=== PATIENT | female | born 1990 | race Caucasian/White ===

== ENCOUNTER → 2018-12-29 17:15 | Outpatient (CLI) | payer OTHER, SELFPAY ==
[2019-01-03 14:45] LABS: HPV Reflexed? NOT INDICATED
== END ==
PROVIDERS: Referring Provider Obstetrics & Gynecology; Visit Provider Obstetrics & Gynecology
DX: Z12.4 Encounter for screening for malignant neoplasm of cervix (principal)
CPT/HCPCS: 87624; 88175; G0145

== ENCOUNTER → 2020-11-13 10:43 | Outpatient (CLI) | payer OTHER, SELFPAY ==
[2016-09-21 08:37] VITALS: BMI 26.3
[2020-11-13 12:37] LABS: Absolute Lymphocyte Count 2.26 X10^3/uL (0.83-4.51); Basophil# 0.02 X10^3/uL; Basophil% 0.2 % (0-1); Eosinophil# 0.06 X10^3/uL; Eosinophils% 0.7 % (0-5); Hematocrit 40.7 % (37-47); Hemoglobin 13.8 g/dL (12.0-15.0); Lymphocyte # 2.26 X10^3/ul (0.83-4.51); Lymphocyte % 25.1 % (19-41); Mean Corp Hgb Conc 33.9 g/dL (32-36); Mean Corpuscular Hgb 28.3 pg (27.0-32.0); Mean Corpuscular Volume 83.4 fL (81-99); Mean Platelet Vol. 11.4 fl (6.2-12.0); Monocyte# 0.56 X10^3/uL; Monocyte% 6.2 % (0-10); NRBC Flagged by Analyzer 0 % (0-5); Neutrophil # 6.02 X10^3/uL (2.7-7.7); Platelet Count 258 K/mm3 (150-450); RBC Distribution Width CV 12.9 % (11.6-14.6); RBC Distribution Width SD 39.3 fl (35.1-43.9); Red Blood Count 4.88 M/mm3 (4.2-5.4)
[2020-11-14 09:30] LABS: HIV - WCH Non-Reactive (Nonreactive); Hepatitis B Surface Antigen Non-Reactive (Nonreactive); Hepatitis C Antibody Non-Reactive (Nonreactive); Rubella IgG Reactive (Nonreactive); Syphilis Antibodies Non-reactive
[2020-11-14 09:39] LABS: Amphetamine Urine VISTA NEGATIVE (<1000 ng/mL); Barbiturate Urine VISTA NEGATIVE (< 200 ng/mL); Benzodiazepine Urine VISTA NEGATIVE (< 200 ng/mL); Cocaine Urine VISTA NEGATIVE (< 300 ng/mL); Ecstacy Urine VISTA NEGATIVE (< 500 ng/mL); Methadone Urine VISTA NEGATIVE (< 300 ng/mL); PCP Urine VISTA NEGATIVE (< 25 ng/mL); THC Urine VISTA NEGATIVE (< 50 ng/mL); Vista UDS pH Range 5
[2020-11-14 09:47] LABS: Thyroid Stim Hormone (TSH) 1.06 uIU/mL (0.358-3.74)
[2020-11-15 00:11] LABS: Chlamydia By Nucleic Acid AMP Negative (Negative)
[2020-11-15 10:02] LABS: Gonococcus By Nucleic Acid AMP Negative (Negative)
[2020-11-17 13:52] LABS: HPV Reflexed? NOT INDICATED
== END ==
PROVIDERS: Visit Provider Obstetrics & Gynecology
DX: Z34.81 Encounter for supervision of other normal pregnancy, first trimester (principal); Z12.4 Encounter for screening for malignant neoplasm of cervix; Z11.3 Encounter for screening for infections with a predominantly sexual mode of transmission
CPT/HCPCS: 36415; 80307; 84443; 85025; 86703; 86762; 86780; 86803; 87086; 87088; 87340; 87491; 87591; 88175; G0145

== ENCOUNTER → 2021-04-06 16:13 | Outpatient (CLI) | payer OTHER, SELFPAY ==
[2021-04-06 17:34] LABS: Hematocrit 35.9 % (37-47); Hemoglobin 11.7 g/dL (12.0-15.0); Mean Corp Hgb Conc 32.6 g/dL (32-36); Mean Corpuscular Hgb 28.5 pg (27.0-32.0); Mean Corpuscular Volume 87.3 fL (81-99); Mean Platelet Vol. 11.3 fl (6.2-12.0); Platelet Count 241 K/mm3 (150-450); RBC Distribution Width CV 13.1 % (11.6-14.6); RBC Distribution Width SD 41.2 fl (35.1-43.9); Red Blood Count 4.11 M/mm3 (4.2-5.4); White Blood Count 9.8 K/mm3 (4.4-11.0)
[2021-04-06 17:37] LABS: Glucose Challenge Gest 1H 50g 97 mg/dL (70-140)
== END ==
PROVIDERS: Visit Provider Obstetrics & Gynecology
DX: Z34.83 Encounter for supervision of other normal pregnancy, third trimester (principal)
CPT/HCPCS: 36415; 82950; 85027

== ENCOUNTER → 2021-05-19 | Outpatient (CLI) | payer OTHER, SELFPAY | END | disposition home or self-care (01) | LOC: LABSPEC 05-20 09:26 | PROVIDERS: Visit Provider Obstetrics & Gynecology | DX: Z36.85 Encounter for antenatal screening for Streptococcus B (principal) | CPT/HCPCS: 87081 ==

== ENCOUNTER → 2021-06-03 | Outpatient (CLI) | payer OTHER, SELFPAY | END | disposition home or self-care (01) | LOC: LABSPEC 10:47 | PROVIDERS: Visit Provider Obstetrics & Gynecology | DX: Z03.818 Encounter for observation for suspected exposure to other biological agents ruled out (principal) | CPT/HCPCS: 87635; U0005; U0003 ==

== ENCOUNTER 2021-06-08 09:35 | Inpatient (IN) | payer OTHER, SELFPAY ==
--- NOTE | 2021-06-07 09:54 | HP.PCM_ITS ---
History and Physical Date of Admission: 06/08/21 ACOG ANTEPARTUM RECORD - HISTORY AND PHYSICAL (06/07/2021) Name: NATALI ORTEGA History of this : This is a 30 year old [id number] presents at 39 wks + 3 days gestation for repeat section. OB Physician: Gee Salgado MD Hilton's Physician: Judson ...................................................................... : 1990 Age: 30 Address: [address] [place] [address] Phone: H) [phone] Insurance Carrier: [employer] [id number] Emergency Contact: CHRISTY HUANG [phone] ...................................................................... 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 Illicit Drug Use - denies use of street drugs Sexual Activity - Residence - lives with Place of - [place], [place] Hours Worked - 24 hours per week Spouse-Sig Other Name - Radhames Ortega Spouse-Sig Other Occupation - [employer] Spouse-Sig Other Phone No - [phone] Children Name(s) - Joie ('15, DS), Hill '17 PRIOR DELIVERY HISTORY DEL DATE GEST LAB WT LB WT OZ TYPE ANES LABOR TX 19 Apr 17 39 0 7 10 C-Sec Spinal No 25 Sep 15 40 18 7 14 C-Sec Epidural No ANTEPARTUM FLOW CHART VISIT GE RTC FU F F MD U U DATE WK MD WKS HT PN HR M SS BP ED WT MD GL D EF ST __ ____ ___ __ __ ___ __ __ __ ___ __ __ __ ___ __ May JMW 3 38 + + 100/60 0 183 ne ne May JMW 1 37 + + 122/84 sl 184 tr - May JMW 1 36 V + + 108/76 0 181 - - Apr JMW 2 34 + + 118/74 0 175 tr - May 05 JMW 2 31 + + 110/70 0 172 tr - Feb 28 JMW 3 25 + + 102/64 0 169 - - 25 [facility] + 112/68 0 159 - - Jan 21 4 18 - + ? 98/72 0 154 - - Dec 17 4 18 - + 114/76 0 150 ne ne ANTEPARTUM NOTE(S): Jun 03 2021: FM well May 27 2021: Periodic cramping, Good FM May 19 2021: doing well, GBS and LARC today Apr 28 2021: doing well Apr 06 2021: See note, Good FM Mar 03 2021: Doing Well and Glucola Given Jan 28 2021: Sono Today,Feeling Well Jan 09 2021: No concerns Dec 12 2020: COMPREHENSIVE ANTEPARTUM NOTE(S): Jun 03 2021: Voiced concerns about stomach/gas pain that resolved yesterday. Covid swab completed in office today. Ensure drink given. Consent signed. May 22 2021: H taken to OB. tkg Apr 06 2021: Reviewed FM, PTL, and PROM. Encouraged Tdap, Influenza and wants to discuss Covid vaccine. She feels she likely had Covid but testing was not really very helpful, a weakly + test then retest was negative. Asking about antibody testing vs just getting vaccine. Advised I think recommendation is 90 days after Covid. Will discuss further with Dr Salgado. LMT Jan 09 2021: Natali is here for a PNV at 18 wks. No FM yet. No edema present. Denies concerns/ complaints. Nausea resolved. Declined AFP/ CF testing. MK Jan 09 2021: 18 weeks, no complaints. Anatomy scan next visit. Dec 12 2020: Natali is here for PNV. Feeling well and learning which foods she can or cannot eat. Taking fluids well. Has cut caffiene from diet and finds herself tired in the afternoon. Voices no complaints. Urine neg/neg. LSS Dec 12 2020: 14wk, has some nausea but controlled. JM Nov 27 2020: NOB TELEHEALTH VISIT, 35 MINUTE DURATION. Natali is a 30 year old with an MONIQUE of 06/12/2021, current GA is 11 w 6 d. She resides with he , Radhames, and their two children. Both of her children were delivered by C/S, and she plans a repeat C/S at [facility]. is planned. Past history updated. Natali states that she feels fatigued, and has had some mild nausea; no emesis. Revi Nov 13 2020: ok Nov 13 2020: Natali is here for a missed menses appt. , previous C/S's. LMP 09/05/20. Positive UPT in office. MONIQUE 06/12/21. Approximately 9wks and 6 days. Reviewed medications, allergies and hx. No concerns expressed at this time. Due for a pap and cultures today, consent signed. Pt complains of fatigue and suppressed appetite. Denies spotting/bleeding/cramping. MK REVIEW OF SYSTEMS: GENERAL - Denies fever, or chills SKIN - Denies rash, new skin lesions, or change in moles EYES - Denies blurred vision, or change in visual acuity EARS - Denies ear pain, or difficulty hearing NOSE - Denies nasal congestion, discharge, or bleeding MOUTH - Denies sore throat, or difficulty swallowing NECK - Denies pain or swelling RESPIRATORY - Denies shortness of breath, cough, wheezing CARDIOVASCULAR - Denies palpitations, chest pain, orthopnea, PND, peripheral edema, syncope or claudication GASTROINTESTINAL - Denies nausea, vomiting, diarrhea, constipation, Denies abdominal pain, melena and or bright red blood GENITOURINARY - Denies dysuria, frequency of urination, urgency, or hesitancy MUSCULOSKELETAL - Denies joint or muscle pain, or back pain NEUROLOGICAL - Denies localized numbness, weakness, or tingling PSYCHIATRIC - Denies depression, anxiety, substance abuse or suicide attempts ENDOCRINE - Denies heat or cold intolerance, weight loss or gain, increasing thirst HEMATO-IMMUNOLOGIC - Denies easy bruising, bleeding, oral ulcerations or recurrent infections GENETICS SCREENING: Age 35+ years: No Thalassemia: No Neural Tube Defect: No Down Syndrome: No MINDI-SACHS: No Sickle Cell Disease: No Hemophilia: No Musc. Dystrophy: No Cystic Fibrosis: No-declines screening [place] Chorea: No Mental Retardation: No Fragile X: No Other genetic: No Other defects: No SABs/still births: No Drugs since LMP: No INFECTION HISTORY: High risk AIDS: No High risk Hepatitis: No Exposed to TB: No Exposed to Herpes: No Rash/viral illness since LMP: No History of STD: No MENSTRUAL HISTORY: *Menses Amount/Duration: 4 daysMenses Regularity: RegularFrequency: monthlyMenarche (Age Onset): 12* PAST SUMMARY: PARITY: 1. Total Pregnancies............ 3 2. Full Term Pregnancies........ 2 3. Premature.................... 0 4. Abortions - Induced.......... 0 5. Abortions - Spontaneous...... 0 6. Ectopics..................... 0 7. Multiple Births.............. 0 8. Living Children.............. 2 PAST #1: Date of :.................. 02/28/15 Gestation Weeks:................ 40 Length of labor(hours):......... 18 Sex:............................ F Weight-lbs:............... 7 Weight-oz:................ 14 Type of Delivery:............... C-Sect Type of Anesthesia:............. Epidural Place of Delivery:.............. [place] Treatment of Labor?:.... No Comment: PUSHED X 4 HRS, BABY IV PAST #2: Date of :.................. 09/22/16 Gestation Weeks:................ 39 Length of labor(hours):......... 0 Sex:............................ M Weight-lbs:............... 7 Weight-oz:................ 10 Type of Delivery:............... C-Sect Type of Anesthesia:............. Spinal Place of Delivery:.............. [place] Treatment of Labor?:.... No Comment: PHYSICAL EXAMINATION General Appearence: 30 yo female in no acute distress Vital Signs: AF, VSS Heart: RRR without rubs or gallops Lungs: CTA x 2 Breasts: deferred Abdomen: gravid Pelvis: Cervix: Presentation: cephalic Station: Fetus: Size: AGA Movement: present Heart: present LAB TEST(S) ORDERED SINCE:09/15/20 06/03/2021 COVID 19, [facility] [facility](RT COLLECT) 05/22/2021 RULE OUT BETA STREP (GRP. B) 04/06/2021 GLUCOSE CHALLENGE GEST 1H 50G 04/06/2021 CBC-COMPLETE BLOOD CNT NO DIFF 11/17/2020 PAP IG W/REFLEX HR HPV APTIMA 11/15/2020 URINE CULTURE 11/15/2020 CHLAMYDIA/GC [place] APTIMA 11/14/2020 URINE DRUG SCREEN (VISTA) 11/14/2020 THYROID STIM HORMONE (TSH) 11/14/2020 RUBELLA IGG 11/14/2020 L509.8000 11/14/2020 HIV - [facility] 11/14/2020 HEPATITIS C ANTIBODY 11/14/2020 HEPATITIS B SURFACE ANTIGEN 11/13/2020 T AND S-NO CHARGE W/PNP 11/13/2020 CBC W/DIFF, AUTOMATED == ==== Order Observation Description Value Ref_Range A* Site == ==== COVID 19, [place] NOTE BOWDEN COVID 19, [place] COVID-19,[place] Not Detected Not Detect ML Normal Reference Range: Not Detected Method:(RT-PCR) real-time reverse transcriptase PCR [employer] Instrument *The Food and Drug Administration (FDA) has issued an Emergency Use Authorization (EAU) for the CORRINE SARS-CoV-2 Assay for the rapid detection of the virus that causes COVID-19. This test has been validated, but the FDAs independent review of this validation is pending. *Negative results do not preclude infection and should not be used as the sole basis for treatment or patient management. Optimum specimen types and timing for peak viral levels during infections caused by SARS-CoV-2 have not been determined. Collection of multiple specimens from the same patient may be necessary to detect the virus. The possibility of a false negative result should be considered if the patient has clinical presentation or has had recent exposure. RULE OUT BETA S NOTE BOWDEN GLUCOSE CHALLEN NOTE BOWDEN GLUCOSE CHALLEN GLU GEST 50G 1H 97 mg/dL 70-140 ML CBC-COMPLETE BL NOTE BOWDEN CBC-COMPLETE BL WBC 9.8 K/mm3 4.4-11.0 ML CBC-COMPLETE BL RBC 4.11 M/mm3 4.2-5.4 L ML CBC-COMPLETE BL HGB 11.7 g/dL 12.0-15.0 L ML CBC-COMPLETE BL HCT 35.9 37-47 L ML CBC-COMPLETE BL MCV 87.3 fL 81-99 ML CBC-COMPLETE BL MCH 28.5 pg 27.0-32.0 ML CBC-COMPLETE BL MCHC 32.6 g/dL 32-36 ML CBC-COMPLETE BL RDW CV 13.1 11.6-14.6 ML CBC-COMPLETE BL RDW SD 41.2 fl 35.1-43.9 ML CBC-COMPLETE BL PLT 241 K/mm3 150-450 ML CBC-COMPLETE BL MPV 11.3 fl 6.2-12.0 ML URINE CULTURE NOTE BOWDEN THYROID STIM HO NOTE BOWDEN THYROID STIM HO TSH 1.06 uIU/mL 0.358-3.74 ML URINE DRUG SCRE NOTE BOWDEN URINE DRUG SCRE VISTA UDS PH 5 ML URINE DRUG SCRE AMPHETAMINES NEGATIVE <1000 ng/mL ML URINE DRUG SCRE BARBITIURATES NEGATIVE < 200 ng/mL ML URINE DRUG SCRE BENZODIAZIPINE NEGATIVE < 200 ng/mL ML URINE DRUG SCRE COCAINE NEGATIVE < 300 ng/mL ML URINE DRUG SCRE ECSTACY NEGATIVE < 500 ng/mL ML URINE DRUG SCRE METHADONE NEGATIVE < 300 ng/mL ML URINE DRUG SCRE OPIATES NEGATIVE < 300 ng/mL ML URINE DRUG SCRE PCP NEGATIVE < 25 ng/mL ML URINE DRUG SCRE THC NEGATIVE < 50 ng/mL ML HEPATITIS C ANT NOTE BOWDEN HEPATITIS C ANT HEPATITIS C AB Non-Reactive Nonreactive ML Non Reactive: < 0.8 Equivocal: >/= 0.8 to < 1.0 Reactive: >/= 1.0 The CDC recommends that a reactive/equivocal HCV antibody result be followed up by the HCV Nucleic Acid Amplification test (800216) HEPATITIS B ILIANA NOTE BOWDEN HEPATITIS B [place]IANA HEP B SURF AG Non-Reactive Nonreactive ML HIV - [facility] NOTE BOWDEN HIV - [facility] HIV Non-Reactive Nonreactive ML L509.8000 NOTE BOWDEN L509.8000 SYPHILIS ABS Non-reactive ML RUBELLA IGG NOTE BOWDEN RUBELLA IGG RUBELLA IGG Reactive Nonreactive ML Antibody Results Interpretation of Immune Status Non Reactive Presumed Non-Immune Equivocal Equivocal Reactive Presumed Immune PN N [facility]~[address] [place], [address]~ T AND AB SCREEN GEL NEGATIVE ML CBC W/DIFF, AUT NOTE BOWDEN CBC W/DIFF, AUT WBC 9.0 K/mm3 4.4-11.0 ML CBC W/DIFF, AUT RBC 4.88 M/mm3 4.2-5.4 ML CBC W/DIFF, AUT HGB 13.8 g/dL 12.0-15.0 ML CBC W/DIFF, AUT HCT 40.7 37-47 ML CBC W/DIFF, AUT MCV 83.4 fL 81-99 ML CBC W/DIFF, AUT MCH 28.3 pg 27.0-32.0 ML CBC W/DIFF, AUT MCHC 33.9 g/dL 32-36 ML CBC W/DIFF, AUT RDW CV 12.9 11.6-14.6 ML CBC W/DIFF, AUT RDW SD 39.3 fl 35.1-43.9 ML CBC W/DIFF, AUT PLT 258 K/mm3 150-450 ML CBC W/DIFF, AUT MPV 11.4 fl 6.2-12.0 ML CBC W/DIFF, AUT NEUT% 67.0 47-70 ML CBC W/DIFF, AUT LY% 25.1 19-41 ML CBC W/DIFF, AUT MONO% 6.2 0-10 ML CBC W/DIFF, AUT EO% 0.7 0-5 ML CBC W/DIFF, AUT BASO% 0.2 0-1 ML CBC W/DIFF, AUT IG% 0.800 0.0-0.9 ML IG% - Immature Granulocytes (promyelocytes, myelocytes and metamyelocytes) > 1% indicates that a LEFT SHIFT is Present. CBC W/DIFF, AUT ABSOLUTE NEUT 6.0 X10 3/uL 2.0-7.7 ML CBC W/DIFF, AUT ABSOLUTE LYMPH 2.26 X10 3/uL 0.83-4.51 ML CBC W/DIFF, AUT NUCLEATED RBC 0 0-5 ML PAP IG W/REFLEX NOTE BOWDEN PAP IG W/REFLEX DIAG Comment . [facility] NEGATIVE FOR INTRAEPITHELIAL LESION OR MALIGNANCY. PAP IG W/REFLEX ADEQ Comment . [facility]CI Satisfactory for evaluation. No endocervical component is identified. PAP IG W/REFLEX PERFORM Comment . LCI Vicente Fredeking, Personal Computer Network Analyst (ASCP) This liquid based ThinPrep(R) pap test was screened with the use of an image guided system. PAP IG W/REFLEX COMM . . LCI PAP IG W/REFLEX PAPSMR Comment . LCI The Pap smear is a screening test designed to aid in the detection of premalignant and malignant conditions of the uterine cervix. It is not a diagnostic procedure and should not be used as the sole means of detecting cervical cancer. Both false-positive and false-negative reports do occur. PAP IG W/REFLEX HPV RFLX Comment . LCI The HPV DNA reflex criteria were not met with this specimen result therefore, no HPV testing was performed. Performed at: [address] [id number] Wood Crafter: Marcelina Perera MD, Phone: [phone] CHLAMYDIA/GC NA NOTE BOWDEN CHLAMYDIA/GC NA CHLAMY,NUC ACID Negative Negative LCI CHLAMYDIA/GC NA GC BY NUC ACID Negative Negative LCI Performed at: =[address] [id number] Wood Crafter: Marcelina Perera MD, Phone: [phone] Group B Beta Streptococcus is not isolated. Mixed Gram Positive Organisms Levels Count 11,000-25,000 MIXC Mixed contaminants. Submit a new specimen if indicated. A POSITIVE == ==== Impression /Plan: 39 wks + 3 days intrauterine who presents for repeat section. Preparations in progress for delivery.
[2021-06-08] VITALS (15 sets, daily range): BP systolic 64–115; BP diastolic 47–80; PULSE 63–90; RESP 16; TEMP 36.1–36.6; O2SAT 94–100; BMI 28.3
[2021-06-08] MEDS: Lactated Ringers 1,000 ML 999 ML IV (10:05)
[2021-06-08 10:21] LABS: Absolute Lymphocyte Count 2.26 X10^3/uL (0.83-4.51); Absolute Neutrophil Count 5.9 X10^3/uL (2.0-7.7); Basophil# 0.05 X10^3/uL; Basophil% 0.6 % (0-1); Eosinophil# 0.07 X10^3/uL; Eosinophils% 0.8 % (0-5); Hematocrit 34.9 % (37-47); Hemoglobin 11.3 g/dL (12.0-15.0); Lymphocyte # 2.26 X10^3/ul (0.83-4.51); Lymphocyte % 25.3 % (19-41); Mean Corp Hgb Conc 32.4 g/dL (32-36); Mean Corpuscular Hgb 25.9 pg (27.0-32.0); Monocyte% 5.6 % (0-10); NRBC Flagged by Analyzer 0 % (0-5); Neutrophil # 5.91 X10^3/uL (2.7-7.7); Neutrophil % 66.1 % (47-70); Platelet Count 247 K/mm3 (150-450); RBC Distribution Width CV 13.2 % (11.6-14.6); RBC Distribution Width SD 38.1 fl (35.1-43.9); Red Blood Count 4.36 M/mm3 (4.2-5.4); White Blood Count 8.9 K/mm3 (4.4-11.0)
[2021-06-08] MEDS: Acetaminophen 500 MG Tablet 1000 MG PO ×3 (10:36→23:06)
[2021-06-08] MEDS: Lactated Ringers 1,000 ML 150 ML IV (11:10)
[2021-06-08] MEDS: Sodium Citrate/Citric Acid 30 ML UDC PO (12:52)
[2021-06-08] MEDS: Cefazolin 2 GM in 0.9% Normal Saline 100 ML IV (13:00)
[2021-06-08] MEDS: Oxytocin 30 units/NS 500 ml 30 UNITS/500 ML IV.SOLN 167 UNITS IV (14:35)
--- NOTE | 2021-06-08 14:36 | EX.PCM.OBRPT ---
Maternal Data Information Final MONIQUE: 06/12/21 Gestational age: 39w3d Details Operative Information Date of Procedure: 06/08/21 Pre-Operative Diagnosis: Prior Section Post-Operative Diagnosis: Prior Section Indications for : Repeat Elective Classification: Scheduled Procedure Type: low transverse tax compliance agent #1: Patti Pulliam Type of Anesthesia: Spinal Anesthesiologist: Trevon Gamez Antibiotic Given: Ancef 2 grams IV x1 Drain: Pope to straight drain Estimated Blood Loss: 500 cc Fluids Replaced: Crystalloid Findings Description of Procedure: Surgeon: Gee Salgado MD, FACOG Procedure: Repeat Low Transverse Cervical Caesarean Section Indication: This is a 30-year-old who presents for her third at 39+ weeks gestation. care has otherwise been uneventful. The patient has been counseled regarding the risk and indications of this procedure including the possibility of bleeding infection and injury to surrounding structures such as bowel bladder. All questions were answered. Procedure: Patient was taken to the operating room where after spinal anesthesia was placed, the patient was prepped and draped in usual sterile fashion and a Pope catheter was placed. The abdomen was entered through the patient's prior Pfannenstiel incision and peritoneum was entered bluntly. After developing a bladder flap on the lower uterine segment a low transverse incision was made on the uterus and head was easily delivered onto the operative field the nose mouth and oropharynx were bulb suctioned. Kiwi vacuum suction was used x1 gentle pull to assist with delivery of the head due to the head being low in the pelvis. Subsequently a viable male infant was born with Apgars of 8/9. The was noted to cry move all extremities vigorously on the operative field. The umbilical cord was doubly clamped and ligated and handed to the nursery personnel who were present for the delivery. Placenta was delivered and noted to be 3 vessels and normal. Uterus was exteriorized and remaining placental tissue was removed. The uterus was then closed in 2 layers first with running locked 0 Vicryl suture followed by a second imbricating layer with 0 Vicryl suture. 0 Vicryl suture was then used in a horizontal mattress interrupted fashion to affect final hemostasis of the uterine incision line. Normal fallopian tubes and ovaries were visualized and the uterus was returned to the pelvis. Hemostasis was noted and rectus abdominis muscles were reapproximated in the midline with interrupted Number 0 Vicryl suture in a horizontal mattress fashion. Fascia was closed with running Number 1 PDS Strata fix suture. Subcutaneous tissue was irrigated with copious amounts of saline solution and then closed with running 3-0 Vicryl suture. Skin was closed with 4-0 monocryl suture in a running subcuticular fashion. Steri strips and a Mepilex dressing were placed across the incision. The patient tolerated the procedure well and was taken to the recovery room in satisfactory condition. Sponge, needle, and instrument counts were all reportedly correct. EBL was less than 500 cc. Ancef 2 gms IV was given prior to the procedure. Presentation: Positive for Vertex Amniotic Fluid Description: Clear Placental Delivery Description: Spontaneous Placenta Disposition: [facility] Specimen(s) Sent to Pathology: None Cord Vessel Description: 3 Vessels Cord Entanglement: Around neck x 2, loose A Gender: Male (1 minute): 8 (5 minute): 9 Complications Risks of Surgery Discussed w/Patient: Bleeding, Infection and Injury to surrounding structure(s) including bowel and bladder Complications: None
[2021-06-08] MEDS: Ketorolac 30 MG/ML Syringe IV ×2 (14:59→21:07)
[2021-06-08] MEDS: Lactated Ringers 1,000 ML 100 ML IV (17:32)
[2021-06-08] MEDS: Cefazolin 1 GM/50 ML BAG IV (21:07)
[2021-06-09 00:35] VITALS: PULSE 75; RESP 18; O2SAT 97
[2021-06-09] MEDS: Ketorolac 30 MG/ML Syringe IV ×2 (03:43→10:10)
[2021-06-09] MEDS: 0.9% Saline Lock 10 ML Syringe IV ×3 (03:43→10:10)
[2021-06-09] MEDS: Acetaminophen 500 MG Tablet 1000 MG PO ×2 (04:32→10:09)
[2021-06-09] MEDS: Cefazolin 1 GM/50 ML BAG IV (04:33)
[2021-06-09 04:35] VITALS: BP 95/57; PULSE 76; RESP 16; TEMP 36.5; O2SAT 96
[2021-06-09 05:42] LABS: Hematocrit 31.8 % (37-47); Hemoglobin 10.6 g/dL (12.0-15.0); Mean Corp Hgb Conc 33.3 g/dL (32-36); Mean Corpuscular Hgb 26.6 pg (27.0-32.0); Mean Corpuscular Volume 79.9 fL (81-99); Platelet Count 227 K/mm3 (150-450); RBC Distribution Width CV 13.4 % (11.6-14.6); RBC Distribution Width SD 38.5 fl (35.1-43.9); Red Blood Count 3.98 M/mm3 (4.2-5.4); White Blood Count 12.1 K/mm3 (4.4-11.0)
[2021-06-09 08:00] VITALS: BP 89/55; PULSE 72; RESP 14; TEMP 36.6; O2SAT 96
--- NOTE | 2021-06-09 08:49 | PCM.PN.OB ---
Subjective Subjective Patient without complaints. Tolerating diet well. Positive flatus. Wants to go home later today if baby is able to go. Objective Data Objective Data Vital Signs: Vital Signs Temp Pulse Resp BP Pulse Ox 98 F 72 14 89/55 L 96 06/09/21 08:00 06/09/21 08:00 06/09/21 08:00 06/09/21 08:00 06/09/21 08:00 Oxygen Delivery Method Room Air Weight: 181 lb 3.52 oz Body Mass Index (BMI) 28.3 Intake & Output: Intake and Output for Last 24 Hours 06/07/21 06/08/21 06/09/21 23:59 23:59 23:59 Intake Total 2784.65 / 2784.65 830 / 830 Output Total 1050 / 1050 1500 / 1500 Balance 1734.65 / 1734.65 -670 / -670 Lab / Micro Data Result Diagrams: 06/09/21 05:30 Labs: Laboratory Results - last 24 hr 06/08/21 10:05: WBC 8.9, RBC 4.36, Hgb 11.3 L, Hct 34.9 L, MCV 80.0 L, MCH 25.9 L, MCHC 32.4, RDW Std Deviation 38.1, RDW Coeff of [place] 13.2, Plt Count 247, MPV 11.0, Immature Gran % (Auto) 1.600 H, Neut % (Auto) 66.1, Lymph % (Auto) 25.3, [place] % (Auto) 5.6, Eos % (Auto) 0.8, Baso % (Auto) 0.6, Absolute Neuts (auto) 5.9, Absolute Lymphs (auto) 2.26, Nucleated RBC % 0 06/08/21 10:05: Blood Type A POSITIVE, Antibody Screen NEGATIVE 06/09/21 05:30: WBC 12.1 H, RBC 3.98 L, Hgb 10.6 L, Hct 31.8 L, MCV 79.9 L, MCH 26.6 L, MCHC 33.3, RDW Std Deviation 38.5, RDW Coeff of [place] 13.4, Plt Count 227, MPV 11.0 Assessment & Plan (1) Previous delivery affecting , delivered: PLAN: Doing well postoperative day #1 status post repeat . Will discharge to home with routine instructions.
--- NOTE | 2021-06-09 09:03 | PCM.DC ---
Discharge Instructions Diet Discharge Diet: No restrictions Activity May resume sexual activity in: 4-6 weeks Lifting Restrictions: 20 pounds Dressing / Incision Call your doctor if your incision/area has: Continuous Slow Oozing, Sudden Increased Bleeding, Increased Pain/ Swelling, Increased Redness and Foul Smelling Discharge Call your doctor if you observe: Fever of 101 or Higher, Inability to urinate, Inability to have a bowel movement and Using more than 1 pad per hour Follow Up Care Please Follow Up With: Gee Salgado MD When: Call [phone] for appointment to be seen in 2 weeks. Test Results: Test results from this visit will be discussed in further detail at your follow-up appointment, if applicable. Discharge Plan Admission Admit Date/Time: 06/08/21 09:35 Primary Reason for Your Visit: Repeat Section Attending Provider: Gee Salgado Primary Care Provider: Iglesia Mar Discharge Orders/Prescriptions Prescriptions: New oxycodone 5 mg capsule 5 mg PO Q6H PRN (Reason: pain (scale score 7-10)) 7 Days Qty: 10 RF: 0 docusate sodium 100 mg tablet 100 mg PO BID PRN (Reason: constipation) Qty: 60 RF: 1 Continued Prenatabs FA 1 TABLET tablet 1 tab PO DAILY RF: 0 Referrals / Follow Up: Iglesia Mar MD [Primary Care Provider] - Disposition Disposition (needs filled in before D/C Order can be placed): Home, Self Care
[2021-06-09] MEDS: Senna/Docusate Sodium 1 Tablet PO (10:09)
[2021-06-09 14:32] VITALS: BP 101/50; PULSE 73; RESP 16; TEMP 36.4; O2SAT 99
[2021-06-09] MEDS: Ibuprofen 600 MG Tablet PO (15:28)
== END 2021-06-09 16:35 | disposition home or self-care (01) | DRG 788 ==
PROVIDERS: Admitting Provider Obstetrics & Gynecology; PCP Family Medicine; Visit Provider Obstetrics & Gynecology
PROC: 10D00Z1 Extraction of Products of Conception, Low, Open Approach (ICD-10-PCS; CPT 59514; principal; 2021-06-08 12:15)
DX: O34.211 Maternal care for low transverse scar from previous cesarean delivery (principal); O69.81X0 Labor and delivery complicated by cord around neck, without compression, not applicable or unspecified; Z3A.39 39 weeks gestation of pregnancy; Z37.0 Single live birth; Z86.16 Personal history of COVID-19
CPT/HCPCS: 85025; 85027; 86850; 86900; 86901; 99218; J7120; A4216; G0378